=== PATIENT | female | born 1970 | race Caucasian/White ===

== ENCOUNTER 2017-06-07 10:42 | Day surgery (SDC) | payer BC ==
--- NOTE | 2017-06-06 10:34 | PDGENHP ---
History and Physical - Chief Complaint Right hip pain - History of Present Illness 1. Bilateral~Femoroacetabular impingement (SETH) Cam type with~resultant labral tear,~(R >~L) 2. Bilateral~Borderline Hip Dyplasia (Anterior) 3. Bilateral Femoral Ante-torsion (Clinically) HISTORY OF PRESENT ILLNESS: Melissais a 47 y.o.~active female~who I have had the pleasure to consult on today. I have enjoyed meeting her. She~lives in [place], [place]. 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 ~She~is ; she~has 2~children. ~Melissaenjoys playing tennis, hiking and walking. Estella's bilateral~hip pain started 10 years ago, with no~recalled trauma or injury, and with no~previous complaints. Pain has gotten worse in the past 8 months (R >~L). Melissadoes not have~a known history of hip dysplasia. Presentation today is of C type bilateral~hip pain. ~The hip does~wake her~at night and does~click and catch on her. Sitting can be a real struggle~for her. Melissadoes~report suffering from lower back pain episodes. Melissahas~participated in physical therapy in the past~and has~tried other conservative measures including chiropractic treatments and massage therapy. She ~has not~received sufficient symptomatic improvement. Melissahas~utilized medication for pain management, including NSAID. Melissahas used medication for 10 years. Melissaunderstands that she~has a hip and pelvis problem which should be researched and wishes to get a better understanding of her~hip status, followed by an establishment of a treatment strategy, hoping sheKanchanwould be able to get back to her~well being active life. History: Past medical history: ~ None which is relevant Relevant familial history: Her father has had bilateral hip replacements. Past surgical history: No. Surgery Anesthesia Year Outcome 1 Tonsillectomy GA 1993 Good 2 C section SA 1997 Good 3 Thyroidectomy GA 1999 Good Melissadenies problematic issues with general anesthesia in the past. I have reviewed, verified and agree with the past medical, surgical, family and social history. Current Medications:~has a current medication list which includes the following prescription(s): synthroid. ALLERGIES:~has No Known Allergies. Objective: Physical Examination: Melissais 5~feet 6~inches tall and weighs 130~Lbs. Melissais AAO x3; she~is well- nourished, in NAD. Skin is warm and dry. ~Breathing is non-labored. ~CV with RRR by pulse. Abdomen is soft, NTND. Currently, she~walks with a abnormal antalgic~gait. Trendelenburg sign is negative~and proprioception is reduced, right~side. She~presents with mild~signs of joint laxity. Beightons Score: 2 She~is fit looking. ~~ Lower spine examination is negative~for sciatic or femoral nerve irritation with negative~SLR &~femoral stretch tests. Range of motion of the spine is normal~for flexion, extension, and rotations, with no~associated pain. Strength, Sensation and pulses are normal - bilaterally Ankles and knees exams are normal~and no~mal-alignment is evident. She~has no leg length discrepancy. Thigh circumference is symmetric~with minor~muscle atrophy~on right~side. Hip ROM (degrees): FL ER At 90~hip FL IR At 90~hip FL AB AD EX IR Neutral hip ER Neutral hip R 105 40 45 40 10 5 55 5 L 95 45 30 40 5 5 50 10 Specific hip and pelvis tests: Quadrant MASSIEL Roll Add. Longus R +++ +++ Negative + L +++ +++ Negative + Glut. Med ITB Pos. Imp R + 4+/5 strength + 4+/5 strength Not done L + 4+/5 strength + 4+/5 strength Negative Squeeze test measured weak Bony Symphysis pubis is pain free~to touch while concentric activity of the rectus abdominis, does not~produce pain at its insertion. Ilio Psos specific tests are positive~for pain during cycling for both hips~and remarkable for no snap. HF has pain on both hips. Anterior~capsule tenderness on both the hips (R > L) Greater trochanteric burse is painful~on both hips~( R > L). Piriformis tests: FAIR is negative, with no~local signs of neuritis related to sciatic nerve. SIJs examination is normal~with normal~MASSIEL in relation and local tenderness. Hamstrings tests are negative~functional contraction and negative~tendinopathy both hips. On a daily basis, the following percentages reflect Estella's overall total pain: Deep hip: 100% Imaging: Radiology studies which I have personally reviewed, analyzed and measured are below: XR: AP of the hip and pelvis: Performed in a good~technique Coccyx to pubic symphysis distance 1.3~cm. 5 deg~caudal. [place] Lines are preserved. Minimal~Pathological signs are seen in the Symphysis Pubis. Minimal~Pathological signs are seen at the Ischial tuberosity. ~ Specific measurements show: NSA~ LCE Sourcil~Angle Sharp's angle Lat. Cam Lat. Pincer C.Over~sign Head~Coverage % ATDmm R N 31 3 39 + - - N N L N 25 7 43 + - - N N Pos. wall sign ISS NAD ~~Dysplasia Comments R Negative Negative 17.6~mm + L + Negative 14.5~mm + Sclerosis Sup. Lat. OA Cysts Joint Space-WBZ Joint Space-Medial R + + Negative 4.9~mm 4.6~mm L + + Negative 5.2~mm 4.4~mm X Table lateral: Anterior cam lesion is seen~on both hips. Alpha Angle: ~ Right 74~dergrees Left 72~degrees Impression and plan: Melissais a 47 y.o.~active female~suffering from symptomatic bilateral~hip pain due to Bilateral~Femoroacetabular impingement (SETH) Cam type with~resultant labral tear ~(R >~L), Bilateral~Borderline Hip Dyplasia (Anterior) and Bilateral Femoral Ante-torsion (Clinically) causing significant disability to her~and altering her~sport and life activities. Physical examination, imaging, and her~story correspond with the diagnosis mentioned above. I explained that femoroacetabular impingement (SETH - Cam type) arises due to a bony or soft tissue conflict between the femur (ball) and acetabulum (socket) caused by an abnormality in the shape of the femoral head and neck. Over time, repetitive impingement can result in damage to the labrum and adjacent surface cartilage within the socket, ultimately giving rise to progressive osteoarthritis of the hip. I explained that although a labral tear can be a source of pain, it is rarely the root of the problem and typically occurs secondary to an underlying abnormality in the shape and mechanics of the hip joint. I explained that hip dysplasia is a condition wherein the hip joint has excessive play~and instability due to a variety of factors, including the depth and adequacy of the socket, the orientation of the femur bone, and ligament laxity around the hip joint. Dysplasia ranges in severity from borderline to hugo, with treatment options being specific to the specific nature of the problem. Left untreated, the instability in the hip joint can cause progressive tearing of the labrum and deterioration of the surface cartilage, ultimately resulting in progressive osteoarthritis of the hip. In her case she has deficient in coverage anteriorly and clinically she also has bilateral retrotorsion which might be contributing to her SETH symptoms. I reviewed conservative treatment options for SETH and Dysplasia including activity modification to avoid positions of impingement or instability, physical therapy, non-steroidal anti-inflammatory medications, and various injections (corticosteroid and PRP) aimed at reducing inflammation in the hip joint or/and preventing dynamic instability and impingement. PRP injections may promote healing and reduce symptoms in certain cases but it will not repair chronically damaged tissue. Although these measures may help to buy time~and reduce current level of symptoms, they are not a definitive solution to the problem given the underlying abnormality in the shape of the hip joint. Patients who have failed conservative management and continue to experience symptoms are candidates for definitive surgical treatment, which may consist of hip arthroscopy alone or in combination with more invasive bony realignment procedures of the hip socket and/or femur called periacetabular osteotomy (THIAGO) or derotational femoral osteotomy (DFO). Hip arthroscopy typically includes treating the labrum with either repair or reconstruction of the torn labrum; as well as addressing the underlying abnormalities by restoring the normal shape to the hip joint. If the cartilage is damaged a Microfracture surgical procedure may also be necessary to help stimulate the growth of fibrocartilage. 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 I have explained that because of her age and gender, the results of hip arthroscopy are less reproducible/predictable than with younger patients or male patients of the same age. Estella~will review the info presented. She might just need hip arthroscopy alone for both sides. However, We can not make any definitive decision without further imaging studies to understand her pathology better. ~ In order to obtain more detailed information regarding the alignment, orientation, and shape of the bony hip and pelvis I will order a CT scan to be performed. The results of the CT scan, including femoral torsion and acetabular version measured values and 3D images, will aid me in deciding on the best treatment strategy and surgical pre-planning. In order to evaluate the integrity of the surface cartilage within the hip joint , I will order a delayed gadolinium enhanced MRI of cartilage (dGEMRIC). This study will determine whetherDanayis a good candidate for hip preservation surgery. Melissais going to contact us after completing her~imaging studies and we are going to make the definitive plan at that point. Melissais happy with this plan. I have also supplied her~with handout~with details of our web site and contact information. I wishDanayall the best, ~~ Inderjit Holland MD History Information I have personally reviewed and updated: medical history Review of Systems Review of Systems: Physical Exam Physical Exam:
[2017-06-07] MEDS ORDERED: LIDOCAINE 1% 2 ML INJ ID PRN (11:06)
[2017-06-07] MEDS ORDERED: LR 1,000 ML IV ONE (11:06)
[2017-06-07] MEDS ORDERED: ACETAMINOPHEN 500 MG TAB PO ONE (11:06)
[2017-06-07] MEDS ORDERED: ceFAZolin 2 GM/SWFI 2 GM/20 ML SYR IVP ONE (11:06)
[2017-06-07] MEDS ORDERED: PREGABALIN 150 MG CAP PO ONE (11:06)
[2017-06-07] MEDS ORDERED: LIDOCAINE 1% 300 MG/30 ML SDV ONE (11:48)
[2017-06-07] MEDS ORDERED: MIDAZOLAM 2 MG/2 ML VIAL ONE (12:03)
[2017-06-07] MEDS ORDERED: MIDAZOLAM 2 MG/2 ML VIAL IVP ONE (12:03)
--- NOTE | 2017-06-07 12:04 | PDANEPAE ---
ANE Past Medical History - Cardiovascular History Hx Hypertension: No Hx Arrhythmias: No Hx Chest Pain: No Hx Coronary Artery / Peripheral Vascular Disease: No Hx CHF / Valvular Disease: No Hx Palpitations: No - Pulmonary History Hx COPD: No Hx Asthma/Reactive Airway Disease: No Hx Recent Upper Respiratory Infection: No Hx Oxygen in Use at Home: No Hx Sleep Apnea: No Sleep Apnea Screening Result - Last Documented: Negative - Neurologic History Hx Cerebrovascular Accident: No Hx Seizures: No Hx Dementia: No - Endocrine History Hx Diabetes: Yes Hypothyroid: No Hyperthyroid: No Obesity: no Endocrine History Comment: THYROIDECTOMY PARTIAL - Renal History Hx Renal Disorders: No - Liver History Hx Hepatic Disorders: No - Neurological & Psychiatric Hx Hx Neurological and Psychiatric Disorders: No - Cancer History Hx Cancer: No - Congenital Disorder History Hx Congenital Disorders: No - GI History Hx Gastrointestinal Disorders: No - Other Health History Other Health History: NEG - Chronic Pain History Chronic Pain: No (MUNIR HIP) - Surgical History Prior Surgeries: R HIP OSTEOTOMY 08/2016. BREAST REDUCTION. THYROIDECTOMY PARTIAL. C SECTION ANE Review of Systems Review of Systems: - Exercise capacity METS (RN): 6 METS ANE Patient History - Allergies Allergies/Adverse Reactions: No Allergies [NKDA] Allergy (Verified 06/06/17 10:35) - Home Medications Home Medications: Aleve 06/06/17 [Last Taken 06/05/17] Gabapentin 06/06/17 [Last Taken 06/06/17] Herbals/Supplements -Info Only 06/06/17 [Last Taken 06/06/17] Synthroid 06/06/17 [Last Taken 06/07/17 07:00] Acetaminophen Pm Caplet 06/07/17 [Last Taken 06/06/17] - NPO status NPO Since - Liquids (Date): 06/07/17 NPO Since - Liquids (Time): 06:30 NPO Since - Solids (Date): 06/06/17 NPO Since - Solids (Time): 20:00 - Smoking Hx Smoking Status: Never smoked - Family Anes Hx Family Hx Anesthesia Complications: NEG ANE Labs/Vital Signs - Vital Signs Blood Pressure: 119/82 Heart Rate: 76 Respiratory Rate: 16 O2 Sat (%): 97 Height: 167.64 cm Weight: 61.235 kg ANE Physical Exam - Airway Neck exam: FROM Mallampati Score: Class 1 Mouth exam: normal dental/mouth exam - Pulmonary Pulmonary: no respiratory distress - Cardiovascular Cardiovascular: regular rate and rhythym - ASA Status ASA Status: II ANE Anesthesia Plan Anesthesia Plan: GA w LMA
[2017-06-07] MEDS ORDERED: fentaNYL 250 MCG/5 ML INJ ONE (12:15)
[2017-06-07] MEDS ORDERED: PROPOFOL 200 MG/20 ML VIAL ONE ×2 (12:15→12:37)
[2017-06-07] MEDS ORDERED: KETOROLAC 30 MG/1 ML SDV ONE (12:50)
[2017-06-07] MEDS ORDERED: DEXAMETHASONE 4 MG/ML VIAL ONE (12:50)
[2017-06-07] MEDS ORDERED: ONDANSETRON 4 MG/2 ML VIAL ONE (12:51)
[2017-06-07] MEDS ORDERED: NALOXONE HCL 0.4 MG/ML INJ IVP PRN (13:26)
[2017-06-07] MEDS ORDERED: fentaNYL 100 MCG/2 ML INJ IVP PRN (13:26)
[2017-06-07] MEDS ORDERED: LR 500 ML IV PRN (13:26)
[2017-06-07] MEDS ORDERED: PROMETHAZINE HCL 25 MG/ML INJ IVP PRN (13:26)
[2017-06-07] MEDS ORDERED: HYDROCODONE/APAP 5/325 TAB PO PRN (13:26)
--- NOTE | 2017-06-07 13:27 | POSTANESTH ---
Post Anesthetic Evaluation Cardiovascular Status: Normal, Stable Respiratory Status: Normal, Stable Level of Consciousness/Mental Status: Can Participate in Eval Pain Control: Adequate, Prn Tx Ordered Nausea/Vomiting Control: Adequate, Prn Tx Ordered Complications Possibly Related to Anesthesia: None Noted
[2017-06-07 15:10] VITALS: BP 135/81; PULSE 72; RESP 14; TEMP 98.2; O2SAT 95
== END 2017-06-07 15:00 | disposition home or self-care (01) ==
LOC: FSGY 10:42
PROVIDERS: ATTEND Orthopaedic Surgery Sports Medicine
PROC: BQ10YZZ Fluoroscopy of Right Hip using Other Contrast (ICD-10-PCS; principal; 2017-06-07 14:15)
PROC: 0QP Lower Bones, Removal (ICD-10-PCS; principal; 2017-06-07 14:15)
DX: T84.84XA Pain due to internal orthopedic prosthetic devices, implants and grafts, initial encounter (principal); Y79.2 Prosthetic and other implants, materials and accessory orthopedic devices associated with adverse incidents
CPT/HCPCS: J0690; J1100; J1885; J2250; J2405; J2704; J3010